=== PATIENT | female | born 1975 | race Two or more races ===

== ENCOUNTER 2024-02-11 16:16 | Emergency (ER) | payer MEDICAID, SELFPAY ==
--- NOTE | 2024-02-11 16:23 | EKG_ITS ---
[facility] Test Date: 2024-02-11 Pat Name: PAYAL TEJEDA Department: Room: - Gender: Female Weir Fisher: : 1975 Requested By: ED Temporary Provider Order Number: [id number] Reading MD: ED Temporary Provider Measurements Intervals Viola Rate: 77 P: 36 ME: 163 QRS: 50 QRSD: 86 T: 40 QT: 367 QTc: 416 Interpretive Statements SINUS RHYTHM Compared to ECG 05/14/2019 15:45:51 No significant changes /store/S0/[id number].pdf
[2024-02-11 16:31] VITALS: BP 168/95; PULSE 74; RESP 18; TEMP 37.3; O2SAT 99; BMI 25.9
--- NOTE | 2024-02-11 16:52 | XR_ITS ---
Examination: CT brain head without contrast. 2-D sagittal coronal reconstructions Date and time of exam:February 11, 2024 1726 hrs. Comparison May 14, 2019 Indications: Onset left-sided body numbness and paresthesias beginning 11:00 AM today CTDI: vol (mGy):46.2 DLP: (mGycm):905 Technique: Multiple CT axial sections of the brain have been obtained, 5 mm slice thickness. Contrast has not been administered. 2-D sagittal, coronal reconstructions have been obtained Low dose protocols were performed. One or more of the following dose reduction techniques were used; automated exposure control, adjustment of the mA and/or KV according to patient size, use of iterative reconstruction technique. Findings: No significant ventricular enlargement. Intra-axial or extra-axial hemorrhage density is not seen. No mass effect or midline shift Basal cisterns are not remarkable. Fourth ventricle is midline. Cranial vault intact. Impression: Negative for acute hemorrhage, mass effect or midline shift As clinically warranted, brain MRI follow-up would best assess for demyelinating disease
--- NOTE | 2024-02-11 16:53 | EDRME_ITS ---
Rapid Medical Screening Exam RME Arrival date/time: 02/11/24 16:16 49-year-old female with history of hypertension reports with complaints of left- sided chest pain left arm and face numbness x 1 day Chief Complaint: Neuro Symptoms/Deficit Time Seen by Provider: 02/11/24 16:28 Vital signs: Vital Signs Temperature 99.2 F 02/11/24 16:31 Pulse Rate 74 02/11/24 16:31 Respiratory Rate 18 02/11/24 16:31 Blood Pressure 168/95 H 02/11/24 16:31 Pulse Oximetry (%) 99 02/11/24 16:31 Oxygen Delivery Method Room Air 02/11/24 16:31
[2024-02-11 17:06] LABS: Basophils % (Auto) 0 % (0-2.5); Eosinophils # (Auto) 0.1 Thou/mm3 (0.0-0.5); Eosinophils % (Auto) 1 % (0-10); Hematocrit 40.7 % (36.0-46.0); Hemoglobin 13.8 g/dL (12.0-16.0); Immature Granulocytes % (Auto) 0 % (0-0); Immature Granulocytes Auto 0.03 Thou/mm3 (0.00-0.00); Lymphocytes # (Auto) 1.6 Thou/mm3 (1.0-4.8); Lymphocytes % (Auto) 19 % (10-50); Mean Corpuscular HGB Conc 33.9 g/dl (31.0-37.0); Mean Corpuscular Hemoglobin 28.3 pg (25.0-35.0); Mean Corpuscular Volume 84 fL (80-100); Monocytes # (Auto) 0.6 Thou/mm3 (0.0-0.8); Monocytes % (Auto) 7 % (0-12); Neutrophils # (Auto) 6.2 Thou/mm3 (1.8-7.7); Neutrophils % (Auto) 73 % (37-80); Nucleated Red Blood Cell % 0 /100 WBC (0); Platelet Count 284 Thou/mm3 (140-440); RDW Standard Deviation 38.5 fL (36.4-46.3); Red Blood Count 4.87 Miln/mm3 (4.00-5.20); White Blood Count 8.5 Thou/mm3 (3.6-11.0)
[2024-02-11 17:34] LABS: Alanine Aminotransferase 17 U/L (10-49); Albumin/Globulin Ratio 2.2 (1.2-2.2); Alkaline Phosphatase 58 U/L (46-116); Anion Gap 8 (7-16); Aspartate Amino Transferase 10 U/L (0-34); BUN/Creatinine Ratio 15 Ratio (12-20); Bilirubin,Total 0.4 mg/dL (0.3-1.2); Blood Urea Nitrogen 9 mg/dL (9-23); Calcium 9.3 mg/dL (8.3-10.6); Calcium (Corrected) 9.3 mg/dL (8.5-10.1); Carbon Dioxide 25.6 mMol/L (20.0-31.0); Chloride 107 mMol/L (98-107); Creatinine (Component) 0.6 mg/dL (0.6-1.3); Estimated Creatinine Clearance 107.9 mL/min (>60); Globulin 2.3 gm/dL (2.3-3.5); Glucose 79 mg/dL (74-106); Osmolality,Calculated 278 (275-295); Potassium 3.9 mMol/L (3.4-5.1); Sodium 141 mMol/L (136-145); Total Protein 7.3 gm/dL (5.7-8.2); Troponin I < 0.002 ng/mL (0.0-0.045); eGFR > 60 See Note
[2024-02-11 17:46] LABS: HCG,Qualitative Serum Negative
--- NOTE | 2024-02-11 19:35 | PD.EDCHEST ---
ED Chest Pain RME/HPI General Chief Complaint: Neuro Symptoms/Deficit Stated Complaint: L-SIDED NUMBNESS AND TINGLING AROUND 1100 Time Seen by Provider: 02/11/24 16:28 Source: patient Arrival date/time: 02/11/24 16:16 49-year-old female with past medical history of left-sided chest pain with numbness and tingling to left arm and left side of lip with no involvement to other extremities. Patient reports started around 11 AM while she was watching TV. Patient reports has history of similar episodes. Patient denies any fever, chills, nausea vomiting, dizziness, changes in vision, or any other associated symptom. Mode of arrival: ambulatory Limitations: no limitations RME / HPI RME / HPI narrative: 02/11/24 16:16 49-year-old female with history of hypertension reports with complaints of left-sided chest pain left arm and face numbness x 1 day Related Data Home Medications ?Medication ?Instructions ?Recorded ?Confirmed ibuprofen 800 mg tablet 800 mg PO QDAY 05/14/19 05/14/19 Previous Rx's ?Medication ?Instructions ?Recorded hydrocodone 5 mg-acetaminophen 325 1 tab PO Q6H PRN pain #7 tabs 02/13/23 mg tablet ibuprofen 600 mg tablet 600 mg PO TID PRN pain #30 tabs 02/13/23 ibuprofen 600 mg tablet 600 mg PO Q6H #30 tabs 09/20/23 Allergies Allergy/AdvReac Type Severity Reaction Status Date / Time NKA* Allergy Uncoded 01/31/17 12:26 Review of Systems Review of Systems Systems Reviewed: All systems reviewed, normal except as documented Constitutional Constitutional: Reports system reviewed and no additional complaints, except as documented, Denies body ache(s), Denies chills and Denies fever(s) Eyes Eyes: Reports system reviewed and no additional complaints, except as documented and Denies change in vision ENT Ears, Nose, Mouth, and Throat: Reports system reviewed and no additional complaints, except as documented, Denies disequilibrium, Denies dizziness, Denies sore throat and Denies vertigo Cardiovascular Cardiovascular: Reports system reviewed and no additional complaints, except as documented, Reports chest pain and Denies dyspnea Respiratory Respiratory: Reports system reviewed and no additional complaints, except as documented, Denies chest congestion, Denies cough and Denies dyspnea Gastrointestinal Gastrointestinal: Reports system reviewed and no additional complaints, except as documented, Denies abdominal pain, Denies nausea and Denies vomiting Musculoskeletal Musculoskeletal: Reports system reviewed and no additional complaints, except as documented, Denies abnormal gait, Denies arthralgias, Reports numbness and Reports tingling Integumentary/Breasts Skin/Breast: Reports system reviewed and no additional complaints, except as documented, Denies erythema, Denies rash and Denies wounds Neurologic Neurologic: Reports system reviewed and no additional complaints, except as documented, Denies abnormal gait, Denies disequilibrium, Denies dizziness, Reports numbness, Reports tingling and Denies vertigo Past Medical History Past Medical History CARDIAC: Negative Congestive Heart Failure RESPIRATORY: Negative Chronic Obstructive Pulmonary Disease (COPD) GENITOURINARY: Negative Renal Disease ENDOCRINE: Negative Diabetes Mellitus Type 1 or Diabetes Mellitus Type 2 Surgical History SURGICAL: Positive Section Social History SMOKING STATUS: Never smoker ED Exam General Limitations: Present no limitations General appearance: Present alert and in no apparent distress Head Head exam: Present atraumatic Eye Eye exam: Present normal appearance, PERRL and EOMI ENT ENT exam: Present normal exam, normal oropharynx and mucous membranes moist Neck Neck exam: Present normal inspection, full ROM and trachea midline Chest Chest inspection: Present normal inspection and symmetric chest wall rise Respiratory Respiratory exam: Present normal lung sounds bilaterally Cardiovascular Cardiovascular exam: Present regular rate, normal rhythm and normal heart sounds Abdominal Exam Abdominal exam: Present soft and normal bowel sounds Extremities Exam Extremities exam: Present normal inspection and full ROM Back Exam Back exam: Present normal inspection and full ROM Neurological Exam Neurological exam: Present alert, oriented X3 and CN II-XII intact Psychiatric Psychiatric exam: Present normal affect and normal mood Skin Skin exam: Present warm, dry, intact and normal color Course Quality Measures none Orders Category Date Time Status EKG (ED ONLY) *Do not use* NOW Care 02/11/24 16:[address] head/brain wo con Stat Exams 02/11/24 16:52 Completed EKG (ED Only) Stat Exams 02/11/24 16:23 Draft CBC Stat Lab 02/11/24 16:57 Completed CMP [Comprehensive Metabolic Panel] Stat Lab 02/11/24 16:57 Completed HCG,Qualitative Serum Stat Lab 02/11/24 16:57 Completed Troponin I Stat Lab 02/11/24 16:57 Completed Troponin I Stat Lab 02/11/24 19:55 Completed Acetaminophen Tab [Tylenol ES Tab] Med 02/11/24 19:34 Discontinued 1,000 mg PO X1 ONE Vital Signs Vital signs: Vital Signs Temperature 99.2 F 02/11/24 16:31 Pulse Rate 74 02/11/24 16:31 Respiratory Rate 18 02/11/24 16:31 Blood Pressure 168/95 H 02/11/24 16:31 Pulse Oximetry (%) 99 02/11/24 16:31 Oxygen Delivery Method Room Air 02/11/24 16:31 99% room air within normal limits Procedures -ED EKG Interpretation #1: Date of EK02/11/24 Time of EK:35 Rate: 77 Interpretation: Interpreted by me EKG Impression: Normal sinus rhythm, No acute ST-T changes, No ectopy, No ischemic changes and Normal QRS Chest Pain MDM Narrative MDM Narrative:: 49-year-old female with past medical history of left-sided chest pain with numbness and tingling to left arm and left side of lip with no involvement to other extremities. Patient reports started around 11 AM while she was watching TV. Patient reports has history of similar episodes. Patient denies any fever, chills, nausea vomiting, dizziness, changes in vision, or any other associated symptom. Patient GCS of 15 with steady gait. Cranial nerve exam was unremarkable. CT of head was unremarkable. CMP was unremarkable for any elevated LFTs or gross electrolyte abnormalities. CBC was unremarkable for any leukocytosis. EKG sinus rhythm. Initial troponin was within normal limits and second troponin was also normal and drawn using heart pathway given 2.4H and past medical history of hypertension recommended repeat and discharged home outpatient follow-up if normal. Patient discharged instructed to follow-up with primary care provider and return to emergency department for any worsening symptoms or as needed. Patient data External records reviewed:: [facility] previous records Clinical information provided by:: patient Social determinants that could affect healthcare access:: none Patient has the following chronic illnesses:: See chart How is presenting disease/condition affected by chronic disease/condition?: uneffected by Evaluation data The following diagnostics were reviewed and interpreted by me:: lab results, radiology exam(s) and EKG tracing(s) Lab and/or radiology exams considered but not ordered:: Ordered Interpretation Summary: Interpreted by me Medications / Prescriptions Medications or Prescriptions considered but not ordered:: Ordered Medication administrations:: Medication Administration History Discontinued Medications Acetaminophen (Acetaminophen 500 Mg Tablet) 1,000 mg PO X1 ONE Stop: 02/11/24 19:35 Last Admin: 02/11/24 19:43 Dose: 1,000 mg Documented By: INOCENCIA Given Consultations Consultation(s) initiated? (list below): No Diagnosis Chest Pain Differential Diagnosis: stable angina, unstable angina pectoris, atypical chest pain, st elevation myocardial infarction, costochondritis, chest pain, biliary colic and other (Anxiety) Most likely diagnosis given after review of the tests above:: Noncardiac chest pain Admission Indicated Admission indicated?: not indicated Admission Request Was there a request for admission?: No Disposition Plan Disposition Plan: Discharge Discharge Attestation Discharge Attestation: The patient and all family members were given an opportunity to ask questions and understood the discharge instructions. Discharge instructions specifically effects, indications for sooner follow up or return to the emergency department, and the expected course of current diagnosis. Patient condition: Stable Discharge Plan Plan Patient Disposition: HOME (Self Care) Disposition Comment: Stable Prescriptions/Referrals Prescriptions/Med Rec: No Action ibuprofen 800 mg Tablet 800 mg PO QDAY hydrocodone-acetaminophen 5-325 mg tablet 1 tab PO Q6H MDD 3 PRN (Reason: pain) Qty: 7 0RF ibuprofen 600 mg tablet 600 mg PO TID PRN (Reason: pain) Qty: 30 0RF ibuprofen 600 mg tablet 600 mg PO Q6H Qty: 30 0RF Referrals: Blayne Henry MD [Primary Care Provider] - In 1 week Problem List Clinical Impression: Non-cardiac chest pain Patient/Caregiver Discharge Instructions Education Materials: ED Chest Pain, Noncardiac Additional Instructions: Drink plenty of fluids and stay hydrated. Follow-up with primary care provider in 24 to 48 hours. Return to emergency department for any worsening symptoms or as needed. Print Language: Upper Sorbian Stand Alone Forms: Gissel Award Info., Patient Portal Info Letter PA/CORINNE Supervising Physician PA/CORINNE Supervising Physician: Dr. Madrigal
[2024-02-11] MEDS: ACETAMINOPHEN 500 MG TABLET 1000 MG PO (19:43)
[2024-02-11 20:26] LABS: Troponin I < 0.002 ng/mL (0.0-0.045)
== END 2024-02-11 21:31 | disposition home or self-care (01) ==
PROVIDERS: Physician Assistant; Emergency Provider Emergency Medicine; PCP Family Medicine
DX: R07.89 Other chest pain (principal); R20.2 Paresthesia of skin; R20.0 Anesthesia of skin; I10 Essential (primary) hypertension
CPT/HCPCS: 36415; 70450; 80053; 84484; 84703; 85025; 93005; 99284; A9270

== ENCOUNTER 2024-05-29 08:30 | Outpatient (RCR) | payer MEDICAID, SELFPAY ==
--- NOTE | 2024-05-29 09:06 | PTNOTE_ITS ---
PT OP Initial Eval Patient Information Outpatient Physical Therapy Treatment Date: 05/29/24 Visit Reasons: RIGHT SHOULDER PAIN Medical Diagnosis: M25.511 Treatment Dx #1: R shoulder pain Start of Care: 05/29/24 Date of Onset: 6 months ago Smoking Status Smoking Status: Never smoker Initial Assessment Subjective: Pt is 49 yr old bangladeshi speaking female who reports R shoulder and decreased ROM x6 months after lifting something heavy. Increased pain with reaching OH, hand behind back, lifting things. 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 PMH: HTN, x1 Imaging: with provider Pt goal: less pain to do HH chores Objective: R shoulder ArOM: Strength: FF: 80 deg 3-/5 ABD: 75 deg with pain 3-/5 ER: 75 deg with pain Hand behind back: L5 Impingement cross body: positive Painful arc: positive Cole Rojas: positive Empty can: positive Assessment: Pt presents with decreased ROM and strength in all planes limited by pain consistent with supraspinatus impingement/tendinopathy. ROM is not limited in capsular pattern and she has good ER/IR so it doesn't seem frozen at this point. Pt requires skilled therapy in order to decrease pain and improve ROM and strength and has fair rehab potential. Pt may benefit from further diagnostic imaging if ssx don't resolve with therapy. Eval followed by [facility]P with printout. Short Term and Tool Engine Lathe Set Up Operator Goals 1. Ind with HEP 2. Improved AROM into all planes to at least 130 deg FF and abduction 3. Pt will reach OH with <=3/10 R shoulder pain 4. Improved strength into all planes to at least 4-/5 Treatment Plan 1. Manual therapy ? 2. Therex ? 3. Modalities as indicated, moist heat, ice, estim ? Frequency and Duration: 1-2x a week for 12 sessions plus the evaluation Certification Dates: 05/29/24 to 08/27/24 Procedure Charges OP PT Eval Mod Complex 30 minutes: Yes
== END 2024-06-02 23:59 | disposition home or self-care (01) ==
LOC: CPTX 08:30
DX: M25.511 Pain in right shoulder (principal); I10 Essential (primary) hypertension
CPT/HCPCS: 97162

== ENCOUNTER 2024-07-02 13:30 | Outpatient (RCR) | payer MEDICAID, SELFPAY ==
--- NOTE | 2024-06-05 13:53 | PT.ODAYNRPT ---
PT Outpatient Daily Note OP Daily Note Outpatient Physical Therapy Treatment Date: 06/05/24 Visit Reasons: Right shoulder pain Subjective: Same as time of evaluation Objective: See f/S for therex MHP: x5' during wand AAROM Assessment: Moderate tissue irritability with AAROM and light resistive therex Plan: Continue per POC Length of Time (minutes) of Treatment: 30 Minutes Procedure Charges Therapeutic Exercise 30 minutes: Yes
--- NOTE | 2024-06-25 13:42 | PT.ODAYNRPT ---
PT Outpatient Daily Note OP Daily Note Outpatient Physical Therapy Treatment Date: 06/25/24 Visit Reasons: Right shoulder pain Subjective: Pt c/o shoulder pain that is worse with activity. Objective: Please see flow sheet for ther ex list. Assessment: Pt demonstrates some shoulder hike with AAROM, pt instructed to perform within tolerance range focus on GH translation avoid upper trap recruitment. Plan: Continue with POC. Length of Time (minutes) of Treatment: 30 Minutes Procedure Charges Therapeutic Exercise 30 minutes: Yes
--- NOTE | 2024-07-02 13:51 | PT.ODAYNRPT ---
PT Outpatient Daily Note OP Daily Note Outpatient Physical Therapy Treatment Date: 07/02/24 Visit Reasons: Right shoulder pain Subjective: Pt reports some progress with R shoulder. Objective: Please see flow sheet for ther ex list. Assessment: Interventions completed with minimal pain and soreness. Plan: Continue with pOC. Length of Time (minutes) of Treatment: 30 Minutes Procedure Charges Therapeutic Exercise 30 minutes: Yes
== END 2024-07-02 23:59 | disposition home or self-care (01) ==
LOC: CPTX 13:30
DX: M25.511 Pain in right shoulder (principal); I10 Essential (primary) hypertension
CPT/HCPCS: 97110

== ENCOUNTER 2024-07-08 10:55 | Outpatient (RCR) | payer MEDICAID, SELFPAY ==
--- NOTE | 2024-07-08 11:58 | PT.ODS1RPT ---
PT OP Progress/Discharge Note Date of Service: 07/07/24 Progress Note/DC Note Progress Note/Discharge Note: DC Note Patient Information Visit Reasons: RT shoulder pain Service Continue Service or Discharge: Discharge Discharge Date: 07/08/24 Status Subjective: The R shoulder pain is the same since starting therapy Objective: R shoulder ArOM: Flexion: 85 deg Abd: 75 deg ER: 75 deg Strength: 3-/5 in all planes Painful arc: positive Assessment: Pt has attended 5 visits with limited progress with therapy goals due to continued pain. Pt has not met goals and ROM is still limited. Pt may benefit from further diagnostic imaging of R shoulder such as MRI. Thank you for your referrals. Plan: D/C with HEP Procedure Charges Therapeutic Exercise 30 minutes: Yes
== END 2024-08-02 23:59 | disposition home or self-care (01) ==
LOC: CPTX 10:55
DX: M25.511 Pain in right shoulder (principal); I10 Essential (primary) hypertension
CPT/HCPCS: 97110

== ENCOUNTER 2024-07-30 18:19 | Emergency (ER) | payer MEDICAID, SELFPAY ==
[2024-07-30 19:04] VITALS: BP 120/81; PULSE 81; RESP 18; TEMP 37.1; O2SAT 99
--- NOTE | 2024-07-30 19:23 | PD.EDCHEST ---
ED Chest Pain RME/HPI General Chief Complaint: Chest Pain Stated Complaint: SPEEDING HEART X 3 DAYS WITH SOB Time Seen by Provider: 07/30/24 19:06 Source: patient Arrival date/time: 07/30/24 18:19 Mode of arrival: ambulatory Limitations: no limitations RME / HPI RME / HPI narrative: Patient complains of pain to her chest x 3 days. Also complains of her heart speeding up and slowing down which causes her shortness of breath. Patient denies any previous MD complaint: chest pain Onset (ago): day(s) (3) Duration: intermittent and now resolved Pain location: left chest Severity: moderate Related Data On Oral Contraceptives: No Home Medications ?Medication ?Instructions ?Recorded ?Confirmed ibuprofen 800 mg tablet 800 mg PO QDAY 05/14/19 05/14/19 Previous Rx's ?Medication ?Instructions ?Recorded hydrocodone 5 mg-acetaminophen 325 1 tab PO Q6H PRN pain #7 tabs 02/13/23 mg tablet ibuprofen 600 mg tablet 600 mg PO TID PRN pain #30 tabs 02/13/23 ibuprofen 600 mg tablet 600 mg PO Q6H #30 tabs 09/20/23 Allergies Allergy/AdvReac Type Severity Reaction Status Date / Time NKA* Allergy Uncoded 07/30/24 18:23 Review of Systems Constitutional Constitutional: Reports system reviewed and no additional complaints, except as documented Eyes Eyes: Reports system reviewed and no additional complaints, except as documented, Denies dry eyes, Denies exophthalmos and Reports floaters Cardiovascular Cardiovascular: Denies chest pain with activity and Denies claudication ED Exam General Limitations: Present no limitations General appearance: Present alert and in no apparent distress Head Head exam: Present atraumatic Eye Eye exam: Present normal appearance, PERRL and EOMI ENT ENT exam: Present normal exam, normal oropharynx and mucous membranes moist Neck Neck exam: Present normal inspection, full ROM and trachea midline Chest Chest inspection: Present normal inspection and symmetric chest wall rise Respiratory Respiratory exam: Present normal lung sounds bilaterally Cardiovascular Cardiovascular exam: Present regular rate, normal rhythm and normal heart sounds Abdominal Exam Abdominal exam: Present soft and normal bowel sounds Extremities Exam Extremities exam: Present normal inspection and full ROM Back Exam Back exam: Present normal inspection and full ROM Neurological Exam Neurological exam: Present alert and oriented X3 Psychiatric Psychiatric exam: Present normal affect and normal mood Skin Skin exam: Present warm, dry, intact and normal color Course Course Course Narrative: Patient will have a CBC, CMP, troponin, magnesium, EKG, and a chest x-ray Quality Measures none Orders Category Date Time Status EKG (ED ONLY) *Do not use* NOW Care 07/30/24 18:28 Completed EKG (ED Only) Stat Exams 07/30/24 18:28 Ordered XR chest 2V Stat Exams 07/30/24 19:26 Completed BNP [B-Type Natriuretic Peptide] Stat Lab 07/30/24 19:50 Completed CBC Stat Lab 07/30/24 19:50 Completed CMP [Comprehensive Metabolic Panel] Stat Lab 07/30/24 19:50 Completed Troponin I Stat Lab 07/30/24 19:50 Completed Vital Signs Vital signs: Vital Signs Temperature 98.7 F 07/30/24 19:04 Pulse Rate 81 07/30/24 19:04 Respiratory Rate 18 07/30/24 19:04 Blood Pressure 120/81 07/30/24 19:04 Pulse Oximetry (%) 99 07/30/24 19:04 Oxygen Delivery Method Room Air 07/30/24 19:04 Pulse ox is 99% room air Chest Pain MDM Narrative MDM Narrative:: CBC, CMP, troponin, chest x-ray and twelve-lead are all within her normal limits. Patient will be discharged in no apparent distress and she has to follow-up with primary care physician in 1 week. She may return here if worse or not better. Patient data External records reviewed:: Other (specify) Clinical information provided by:: none Social determinants that could affect healthcare access:: none Patient has the following chronic illnesses:: No chronic illnesses How is presenting disease/condition affected by chronic disease/condition?: no chronic disease Evaluation data The following diagnostics were reviewed and interpreted by me:: other (specify) Lab and/or radiology exams considered but not ordered:: NA Interpretation Summary: NA Medications / Prescriptions Medications or Prescriptions considered but not ordered:: NA Medication administrations:: NA Consultations Consultation(s) initiated? (list below): No Diagnosis Most likely diagnosis given after review of the tests above:: NA Admission Indicated Admission indicated?: not indicated Admission Request Was there a request for admission?: No Disposition Plan Disposition Plan: Discharge Discharge Attestation Discharge Attestation: The patient and all family members were given an opportunity to ask questions and understood the discharge instructions. Discharge instructions specifically effects, indications for sooner follow up or return to the emergency department, and the expected course of current diagnosis. Patient condition: Stable Discharge Plan Plan Patient Disposition: HOME (Self Care) Discharge Disposition comment: Patient discharged in no apparent distress. Patient condition on transfer: Stable Prescriptions/Referrals Prescriptions/Med Rec: No Action ibuprofen 800 mg Tablet 800 mg PO QDAY hydrocodone-acetaminophen 5-325 mg tablet 1 tab PO Q6H MDD 3 PRN (Reason: pain) Qty: 7 0RF ibuprofen 600 mg tablet 600 mg PO TID PRN (Reason: pain) Qty: 30 0RF ibuprofen 600 mg tablet 600 mg PO Q6H Qty: 30 0RF Referrals: Blayne Henry MD [Primary Care Provider] - In 1 week Problem List Clinical Impression: Atypical chest pain Impression comment: Patient discharged in no apparent distress Patient/Caregiver Discharge Instructions Discharge Activity: activity as tolerated Print Language: Argentine Stand Alone Forms: Gissel Award Info., Patient Portal Info Letter PA/CORINNE Supervising Physician PA/BANDER HAND Supervising Physician: Mally
--- NOTE | 2024-07-30 19:26 | XR_ITS ---
Examination: PA and lateral chest 2 views TECHNIQUE: Upright PA and lateral chest 2 views Date and time: July 30, 20242050 hours INDICATIONS: Chest pain and shortness of breath today. FINDINGS: Normal heart size. Lungs are clear. Osseous structures are intact. IMPRESSION: No active disease
[2024-07-30 20:13] LABS: Basophils % (Auto) 0 % (0-2.5); Eosinophils # (Auto) 0.3 Thou/mm3 (0.0-0.5); Eosinophils % (Auto) 3 % (0-10); Hematocrit 38.7 % (36.0-46.0); Hemoglobin 13.1 g/dL (12.0-16.0); Immature Granulocytes % (Auto) 0 % (0-0); Immature Granulocytes Auto 0.04 Thou/mm3 (0.00-0.00); Lymphocytes # (Auto) 2.2 Thou/mm3 (1.0-4.8); Lymphocytes % (Auto) 20 % (10-50); Mean Corpuscular HGB Conc 33.9 g/dl (31.0-37.0); Mean Corpuscular Hemoglobin 28.8 pg (25.0-35.0); Mean Corpuscular Volume 85 fL (80-100); Monocytes # (Auto) 0.8 Thou/mm3 (0.0-0.8); Monocytes % (Auto) 7 % (0-12); Neutrophils # (Auto) 7.9 Thou/mm3 (1.8-7.7); Neutrophils % (Auto) 70 % (37-80); Nucleated Red Blood Cell % 0 /100 WBC (0); Platelet Count 290 Thou/mm3 (140-440); RDW Standard Deviation 40.3 fL (36.4-46.3); Red Blood Count 4.55 Miln/mm3 (4.00-5.20); White Blood Count 11.4 Thou/mm3 (3.6-11.0)
[2024-07-30 20:31] LABS: Alanine Aminotransferase 12 U/L (10-49); Albumin, Serum 4.8 gm/dL (3.5-5.0); Albumin/Globulin Ratio 1.9 (1.2-2.2); Alkaline Phosphatase 58 U/L (46-116); Anion Gap 11 (7-16); Aspartate Amino Transferase 15 U/L (0-34); BUN/Creatinine Ratio 15 Ratio (12-20); Bilirubin,Total 0.3 mg/dL (0.3-1.2); Blood Urea Nitrogen 12 mg/dL (9-23); Calcium 9.8 mg/dL (8.3-10.6); Calcium (Corrected) 9.8 mg/dL (8.5-10.1); Chloride 100 mMol/L (98-107); Creatinine (Component) 0.8 mg/dL (0.6-1.3); Globulin 2.5 gm/dL (2.3-3.5); Glucose 78 mg/dL (74-106); Osmolality,Calculated 272 (275-295); Potassium 3.5 mMol/L (3.4-5.1); Sodium 137 mMol/L (136-145); Total Protein 7.3 gm/dL (5.7-8.2); Troponin I < 0.002 ng/mL (0.0-0.045); eGFR > 60 See Note
[2024-07-30 21:22] LABS: B-Type Natriuretic Peptide < 20 pg/mL (0-100)
[2024-07-30 22:11] VITALS: BP 128/76; PULSE 72; RESP 16; TEMP 36.8; O2SAT 98
== END 2024-07-30 22:13 | disposition home or self-care (01) ==
PROVIDERS: Physician Assistant; Emergency Provider Emergency Medicine; PCP Family Medicine
DX: R07.89 Other chest pain (principal); R06.02 Shortness of breath
CPT/HCPCS: 36415; 71046; 80053; 83880; 84484; 85025; 93005; 99283

== ENCOUNTER 2024-12-03 16:24 | Emergency (ER) | payer MEDICAID, SELFPAY ==
[2024-12-03 16:36] VITALS: BP 148/82; PULSE 66; RESP 18; TEMP 37.2; O2SAT 99; BMI 24.3
--- NOTE | 2024-12-03 16:48 | XR_ITS ---
Examination: CT abdomen and pelvis without contrast. Coronal 3-D reconstructions. Sagittal 2-D reconstructions. Date and time of exam:December 03, 2024, 1609 hrs., Comparison September 20, 2023 Indications: Onset left-sided flank pain today CTDI: vol (mGy): 6.33 DLP: (mGycm): 347 Technique: Axial images of the abdomen have been obtained, 3 mm slice thickness Intravenous contrast material has not been administered. Low dose protocols were performed. One or more of the following dose reduction techniques were used; automated exposure control, adjustment of the mA and/or KV according to patient size, use of iterative reconstruction technique. Findings: Stable small pulmonary nodules in the right and left lung compared with September 20, 2023 No visualized liver or splenic lesion No gallstones No pancreatic or adrenal mass No renal or ureteral calculi, no hydronephrosis Aorta normal size Normal appendix Scattered colonic diverticulosis, no diverticulitis No pelvic mass Bladder intact Moderate osteopenia Impression: No renal or ureteral calculi, no hydronephrosis Normal appendix Colonic diverticulosis, no diverticulitis No bladder mass or bladder calculi
--- NOTE | 2024-12-03 16:49 | EDRME_ITS ---
Rapid Medical Screening Exam [facility] Arrival date/time: 12/03/24 16:24 49-year-old female presents to the emergency department for complaints of left flank pain ongoing for last few days Chief Complaint: Back Pain/Injury Vital signs: Vital Signs Temperature 98.9 F 12/03/24 16:36 Pulse Rate 66 12/03/24 16:36 Respiratory Rate 18 12/03/24 16:36 Blood Pressure 148/82 H 12/03/24 16:36 Pulse Oximetry (%) 99 12/03/24 16:36 Oxygen Delivery Method Room Air 12/03/24 16:36
[2024-12-03 17:25] LABS: Collection Type, Urine Clean Catch
[2024-12-03 17:28] LABS: Basophils # (Auto) 0.0 Thou/mm3 (0.0-0.2); Basophils % (Auto) 0 % (0-2.5); Eosinophils # (Auto) 0.0 Thou/mm3 (0.0-0.5); Eosinophils % (Auto) 1 % (0-10); Hematocrit 39.1 % (36.0-46.0); Hemoglobin 13.0 g/dL (12.0-16.0); Immature Granulocytes Auto 0.01 Thou/mm3 (0.00-0.00); Lymphocytes # (Auto) 0.7 Thou/mm3 (1.0-4.8); Lymphocytes % (Auto) 8 % (10-50); Mean Corpuscular HGB Conc 33.2 g/dl (31.0-37.0); Mean Corpuscular Hemoglobin 28.6 pg (25.0-35.0); Mean Corpuscular Volume 86 fL (80-100); Monocytes # (Auto) 0.2 Thou/mm3 (0.0-0.8); Monocytes % (Auto) 3 % (0-12); Neutrophils # (Auto) 7.6 Thou/mm3 (1.8-7.7); Neutrophils % (Auto) 89 % (37-80); Nucleated Red Blood Cell # 0.00 Thou/mm3 (0.00-0.00); Nucleated Red Blood Cell % 0 /100 WBC (0); Platelet Count 243 Thou/mm3 (140-440); RDW Standard Deviation 39.6 fL (36.4-46.3); Red Blood Count 4.55 Miln/mm3 (4.00-5.20); White Blood Count 8.6 Thou/mm3 (3.6-11.0)
[2024-12-03 17:30] LABS: Bilirubin,Urine Negative (Negative); Blood,Urine 1+ (Negative); Clarity,Urine Clear (Clear/Hazy); Color,Urine Colorless (Lt Yel-Yel); Culture Indicated,Urine Not Indicated; Glucose, Urine Negative (Negative); Ketones,Urine Negative (Negative); Leukocyte Esterase,Urine Negative (Negative); Nitrite,Urine Negative (Negative); PH,Urine 6.0 (5.0-7.0); Protein,Urine Negative (Neg - Trace); RBC,Urine 1 /hpf (0-3); Specific Gravity,Urine 1.017 (1.001-1.035); Squamous Epithelial Cell,Urine < 1 /hpf (0-5); Urobilinogen,Urine Negative mg/dL (0.0-1.0); WBC,Urine < 1 /hpf (0-5)
[2024-12-03] MEDS: KETOROLAC INJ 60 MG/2 ML VIAL 30 MG IM (17:32)
[2024-12-03] MEDS: ONDANSETRON ODT 4 MG TABRAP PO (17:32)
[2024-12-03 17:35] LABS: HCG Qualitative,Urine Negative
[2024-12-03 17:52] LABS: Alanine Aminotransferase 11 U/L (10-49); Albumin, Serum 4.6 gm/dL (3.5-5.0); Albumin/Globulin Ratio 2.1 (1.2-2.2); Alkaline Phosphatase 68 U/L (46-116); Anion Gap 12 (7-16); Aspartate Amino Transferase 17 U/L (0-34); BUN/Creatinine Ratio 17 Ratio (12-20); Bilirubin,Total 0.3 mg/dL (0.3-1.2); Blood Urea Nitrogen 10 mg/dL (9-23); Calcium 8.9 mg/dL (8.3-10.6); Calcium (Corrected) 8.9 mg/dL (8.5-10.1); Carbon Dioxide 24.5 mMol/L (20.0-31.0); Chloride 106 mMol/L (98-107); Creatinine (Component) 0.6 mg/dL (0.6-1.3); Estimated Creatinine Clearance 97.9 mL/min (>60); Globulin 2.2 gm/dL (2.3-3.5); Glucose 123 mg/dL (74-106); Lipase 34 U/L (12-53); Osmolality,Calculated 283 (275-295); Potassium 3.8 mMol/L (3.4-5.1); Sodium 142 mMol/L (136-145); Total Protein 6.8 gm/dL (5.7-8.2); eGFR > 60 See Note
[2024-12-03 18:06] VITALS: BP 144/78; PULSE 61; RESP 16; TEMP 36.7; O2SAT 98
[2024-12-03 18:07] VITALS: BP 144/78; PULSE 65; RESP 18; TEMP 36.7; O2SAT 97
--- NOTE | 2024-12-03 18:35 | EDNOTE_ITS ---
ED General RME/HPI General Chief complaint: Back Pain/Injury Stated complaint: LEFT FLANK PAIN, NAUSEA Time Seen by Provider: 12/03/24 19:15 Arrival date/time: 12/03/24 16:24 RME / HPI RME / HPI narrative: 12/03/24 16:24 49-year-old female with PMHx of GDM and HTN who comes in for evalaution for L sided flank pain, onset one month ago, has happened before, rated 10/10 upon arrival with associated nausea and vomiting. Pt reports she has had pain like this before a couple years ago in which she had a kidney stone on the same side and it was managed with pain medicine. She denies any associated CP, SOB, SOLER, abdominal pain, however does endorse 2x episodes of nonbloody vomiting. Says she works in the [employer], and keeps herself hydrated typically. She denies any changes to dietary habits and denies any recent travel. Says her Bowel movements are normal. She also says she is currently menstruating at this time. Does not get UTIs often and denies any dysuria at this time. She went to her PCP recently within this month and she said she was told that she was having back spasms and was given a muscle relaxer. Related Data Previous Rx's ?Medication ?Instructions ?Recorded hydrocodone 5 mg-acetaminophen 325 1 tab PO Q8H PRN se mariama pain 3 12/03/24 mg tablet days #9 tabs ondansetron 4 mg disintegrating 4 mg PO Q8H PRN nausea and 12/03/24 tablet vomiting 3 days #9 tabs Allergies Allergy/AdvReac Type Severity Reaction Status Date / Time No Known Allergies Allergy Verified 12/03/24 16:26 Review of Systems Review of Systems Narrative Review of Systems: Constitutional: No fever, chills, fatigue, weakness, weight loss HEENT: No eye pain, vision loss, ear pain, hearing loss, dysphagia, Cardiovascular: No chest pain, palpitations, edema, pain with walking Respiratory: No cough, shortness of breath, wheezing GI: No NVD, abdominal pain, constipation, blood in stool, loss of appetite, heartburn : + L flank pain, no dysuria Extremities: No presence of pitting edema MSK: + L sided back pain, joint pain, joint swelling Neuro: No dizziness, numbness, weakness, headaches, seizures, tremors Psych: No anxiety, depression ED Exam Narrative Physical exam: General: AAOx3, NAD, jamaican speaking female HEENT: Moist mucous membranes, conjunctiva clear, EOMI, PERRLA, Cardiovascular: S1, S2, radial pulses +2 bilat, RRR Pulmonary: CTAB bilat no cough, no wheezing GI: No tenderness to light or deep palpitation, no guarding, rigidity, rebound tenderness or distension : + L sided costal tenderness Extremities: No presence of trace or pitting edema in lower extremities bilaterally, dorsalis pedis pulses +2 bilaterally Neuro: AAOx3, no focal motor or sensory deficits in the UE or LE bilat Psych: Good judgement, thought and behavior Course Quality Measures none Orders Category Date Time Status Strain urine for calculus ONCE Care 12/03/24 19:[address] abdomen pelvis wo con Stat Exams 12/03/24 16:48 Completed CBC Stat Lab 12/03/24 17:18 Completed Comprehensive Metabolic Panel Stat Lab 12/03/24 17:18 Completed HCG Qualitative,Urine Stat Lab 12/03/24 17:10 Completed Lipase Stat Lab 12/03/24 17:18 Completed UA, C/S IF [Urinalysis, C/S if Indicated] Stat Lab 12/03/24 17:10 Completed Ketorolac Inj [Toradol Inj] Med 12/03/24 16:47 Discontinued 30 mg IM X1 ONE Ondansetron Odt [Zofran Odt] Med 12/03/24 16:47 Discontinued 4 mg PO X1 ONE Vital Signs Vital signs: Vital Signs Temperature 98.9 F 12/03/24 16:36 Pulse Rate 66 12/03/24 16:36 Respiratory Rate 18 12/03/24 16:36 Blood Pressure 148/82 H 12/03/24 16:36 Pulse Oximetry (%) 99 12/03/24 16:36 Oxygen Delivery Method Room Air 12/03/24 16:36 Discharge Plan Plan Patient Disposition: HOME (Self Care) Patient condition on transfer: Stable Prescriptions/Referrals Prescriptions/Med Rec: New hydrocodone-acetaminophen 5-325 mg tablet 1 tab PO Q8H MDD 3 tablets PRN (Reason: severe pain) 3 Days Qty: 9 0RF Rx Instructions: Take one tablet by mouth every eight hours as needed ondansetron 4 mg tablet,disintegrating 4 mg PO Q8H PRN (Reason: nausea and vomiting) 3 Days Qty: 9 0RF Rx Instructions: Dissolve one tablet by mouth up to three times a day as needed Discontinued ibuprofen 800 mg Tablet 800 mg PO QDAY hydrocodone-acetaminophen 5-325 mg tablet 1 tab PO Q6H MDD 3 PRN (Reason: pain) Qty: 7 0RF ibuprofen 600 mg tablet 600 mg PO TID PRN (Reason: pain) Qty: 30 0RF ibuprofen 600 mg tablet 600 mg PO Q6H Qty: 30 0RF Referrals: Bee Jackson PA-C [Primary Care Provider] - In 1 week Problem List Clinical Impression: Strain of lumbar region, Left flank tenderness Patient/Caregiver Discharge Instructions Print Language: Vietnamese Stand Alone Forms: Gissel Award Info., Patient Portal Info Letter MD Attestation Attestation I, Dr. Messina, have reviewed the history, exam, and assessment of the patient. I have evaluated the patient independently and agree with the plan of care documented by the resident Dr. Galvan. All diagnostic studies were reviewed and discussed. I confirm the diagnosis as documented by the resident. I was present during the Medical Decision Making for this patient. The patient?s plan of care was created between myself and the resident and consistent with our discussion of the patient?s case. MDM Narrative MDM hospital course (for use when minimal MDM required): 1899: Reviewed preliminary images of CT Abd/pelvis which appears to show a L sided opacity seen in L kidney that could represent a stone, but minimal to no edema or perinephric stranding based off my interpretation. Pending official read. 1905: Official CT abd/pelvis read shows no renal or ureteral calculi, no hydronephrosis, normal appendix, colonic diverticulosis or no diverticulitis, no bladder mass or bladder calculi. 193: Upon reviewing labs, imaging and speaking with patient, at this point, likely DDx could of been passed stone or a back spasm. At this time, no admission is required as patient does not meet sepsis criteria, and pain is controlled at this time. Will recommend patient to follow up with PCP and discharging patient with pain management and antiemetics. Medication Administration(s) Medication Administration History Discontinued Medications Ketorolac Tromethamine (Ketorolac Inj 60 Mg/2 Ml Vial) 30 mg IM X1 ONE Stop: 12/03/24 16:48 Last Admin: 12/03/24 17:32 Dose: 30 mg Documented By: AMINATA Ondansetron HCl (Ondansetron Odt 4 Mg Tabrap) 4 mg PO X1 ONE; Protocol Stop: 12/03/24 16:48 Last Admin: 12/03/24 17:32 Dose: 4 mg Documented By: AMINATA Diagnosis Diagnoses ruled out and/or further discussions: Nephrolithiasis, pyleonephritis, cystitis, back spasm, pancreatitis
[2024-12-03 18:54] VITALS: BP 146/89; PULSE 66; RESP 18; O2SAT 98
[2024-12-03 19:20] VITALS: BP 139/80; PULSE 60; RESP 18; TEMP 36.7; O2SAT 98
== END 2024-12-03 19:57 | disposition home or self-care (01) ==
PROVIDERS: Nurse Practitioner Primary Care; Emergency Provider Emergency Medicine
DX: S39.012A Strain of muscle, fascia and tendon of lower back, initial encounter (principal); R10.8A2 Left flank tenderness; Z87.442 Personal history of urinary calculi; I10 Essential (primary) hypertension; X58.XXXA Exposure to other specified factors, initial encounter
CPT/HCPCS: 36415; 74176; 80053; 81001; 81025; 83690; 85025; 96372; 99284; J1885; Q0162

== ENCOUNTER 2024-12-21 15:27 | Emergency (ER) | payer MEDICAID, SELFPAY ==
[2024-12-21 17:00] VITALS: BP 138/83; PULSE 67; RESP 18; TEMP 37.2; O2SAT 99; BMI 24.1
--- NOTE | 2024-12-21 17:18 | XR_ITS ---
EXAMINATION: Lumbar spine 3 views TECHNIQUE: AP lateral: Lateral lower lumbar spine 3 views Date and time: December 21, 2024, 1733 hours INDICATIONS: Back pain beginning 3 days ago. FINDINGS: Adequate alignment lumbar vertebral bodies. No lumbar fracture. No lumbar disc narrowing. Minimal lumbar spondylosis IMPRESSION: No lumbar fracture or significant lumbar disc narrowing
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
[2024-12-21] MEDS: ACETAMINOPHEN 500 MG TABLET 1000 MG PO (19:15)
[2024-12-21] MEDS: IBUPROFEN TAB 400 MG TABLET 800 MG PO (19:15)
[2024-12-21] MEDS: LIDOCAINE 5% 1 PATCH 2 PATCH TOP (19:17)
== END 2024-12-21 20:05 | disposition home or self-care (01) ==
PROVIDERS: Emergency Provider Emergency Medicine
DX: S33.9XXA Sprain of unspecified parts of lumbar spine and pelvis, initial encounter (principal); X50.0XXA Overexertion from strenuous movement or load, initial encounter; Y92.810 Car as the place of occurrence of the external cause
CPT/HCPCS: 72100; 99282; J3490; A9270

== ENCOUNTER → 2025-03-04 | Outpatient (CLI) | payer MEDICAID, SELFPAY ==
--- NOTE | 2025-03-04 11:00 | XR_ITS ---
Examination: Screening digital mammography, bilateral Computer aided detection 3-D breast Tomosynthesis, bilateral Date and time of exam: 03/04/2025, 10:33 a.m. Comparisons: Not available. If prior mammograms can be obtained recommend comparison with today's exam. Indications: Screening Technique: Nonmagnified MLO, CC views of the breasts to been obtained, reconstructed from 3-D Tomosynthesis images. R2 computer aided detection program utilized for evaluation of suspicious masses and/or abnormal calcifications. 3-D Tomosynthesis images obtained. Technologist: Findings: There are scattered areas of fibroglandular density. No evidence of abnormal masses or suspicious calcifications. Impression: BI-RADS category 1: Negative findings (within normal) Recommend 1 year follow-up mammogram
== END | disposition home or self-care (01) ==
LOC: CDIM 10:27
PROVIDERS: PCP Family Medicine
DX: Z12.31 Encounter for screening mammogram for malignant neoplasm of breast (principal); R92.313 Mammographic fatty tissue density, bilateral breasts
CPT/HCPCS: 77063; 77067